=== PATIENT | male | born 1955 | race Caucasian/White ===

== ENCOUNTER 2018-03-15 10:00 | Day surgery (SDC) | payer OTHER ==
[~2018-03-15] VITALS: Ht 182.9 cm; Wt 77.0 kg
[2018-03-15 10:15] VITALS: BP 138/90
[2018-03-15] MEDS ORDERED: ASPI-621 PO (10:26)
[2018-03-15] MEDS ORDERED: Vitamin B12 PO (10:26)
[2018-03-15] MEDS ORDERED: ERGO500017 PO (10:26)
[2018-03-15] MEDS ORDERED: MULT-6 PO (10:26)
[2018-03-15] MEDS ORDERED: FENO145T30 PO (10:26)
[2018-03-15 10:48] LABS: INTERNATIONAL NORMALIZED RATIO 1.08 (0.93-1.1); PROTHROMBIN TIME 11.1 Seconds (9.6-11.5)
[2018-03-15] MEDS ORDERED: FENTANYL PF 100 MCG/2ML ONE (11:44)
[2018-03-15] MEDS ORDERED: MIDAZOLAM 1 MG/ML, 5ML ONE (11:44)
[2018-03-15] MEDS ORDERED: LIDOCAINE 1%, 50ML ONE (11:44)
== END 2018-03-15 14:52 | disposition home or self-care (01) ==
LOC: CACL 10:00
PROVIDERS: ATTEND Internal Medicine Cardiovascular Disease
DX: R07.9 Chest pain, unspecified (principal); F17.210 Nicotine dependence, cigarettes, uncomplicated; E78.2 Mixed hyperlipidemia; E55.9 Vitamin D deficiency, unspecified; Z79.899 Other long term (current) drug therapy; Z87.891 Personal history of nicotine dependence; Z72.89 Other problems related to lifestyle
CPT/HCPCS: 36415; 85610; 93458; 99156; C1760; C1769; C1894; J2250; J3010; J3490; Q9967